=== PATIENT | female | born 1965 | race Caucasian/White ===

== ENCOUNTER 2020-08-15 10:29 | Emergency (ER) | payer BC, SELFPAY ==
--- NOTE | 2020-08-15 11:39 | HMH.EDUTC ---
[facility] [place] Clinical Impression: Exposure to COVID-19 virus Disposition: Home, Self-Care Condition on Discharge: Good Instructions: Preventing the Spread of Coronavirus Discharge Instructions Additional Instructions: Drink plenty of fluids. Take tylenol for pain or fever. Follow up with your regular doctor. GO TO THE ER FOR ANY WORSENING SYMPTOMS Referrals: Damien East APRN [Primary Care Provider] - Time of Disposition: 12:35 Medical Decision Making - Medical Records Medical records reviewed: No: I reviewed the patient's medical records. - Joon Inquiry Pt receiving controlled substance: No Vital Signs: 08/15/20 12:15 08/15/20 12:46 Temperature 97.3 F L 97.3 F L Temperature Source Oral Pulse Rate 57 L Pulse Rate [Right Brachial] 57 L Respiratory Rate 20 20 Blood Pressure 138/89 Blood Pressure [Right Arm] 138/89 Blood Pressure Mean [Right Arm] 105 Blood Pressure Source [Right Arm] Automatic Cuff Blood Pressure Position [Right Arm] Sitting 02 Sat by Pulse Oximetry 97 Oxygen Delivery Method Room Air Orders (Tests/Meds): ORDERS Category Date Time Status Covid-19 Nasal PCR ([facility]) Routine Lab 08/15/20 12:30 Received [facility] [place] HPI - General Stated complaint: covid test Time Seen by Provider: 08/15/20 11:39 - History of Present Illness Provider Complaint: She has been quarentined for the past 2 weeks due to being exposed to covid. She denies any symptoms. She needs a covid test to be allowed to go back to work. - Related Data Allergies Allergy/AdvReac Type Severity Reaction Status Date / Time No Known Allergies Allergy Verified 08/15/20 12:34 [facility] History - Hepatitis A Screen Attestation statement:: This patient has been screened for Hepatitis A risk factors. I have reviewed the patient's past medical history: Yes ROS Obtained: Yes All systems reviewed & no additional complaints - Constitutional Constitutional: Reports system reviewed and no additional complaints, except as docu - Eyes Eyes: Reports system reviewed and no additional complaints, except as docu - ENT Ears, Nose, Mouth, and Throat: Reports system reviewed and no additional complaints, except as docu - Cardiovascular Cardiovascular: Reports system reviewed and no additional complaints, except as docu - Respiratory Respiratory: Yes system reviewed and no additional complaints, except as docu - Gastrointestinal Gastrointestingal: Reports: system reviewed and no additional complaints, except as docu Physical Exam - General General appearance: alert, in no apparent distress - Head Head exam: atraumatic, normocephalic, normal inspection - Eye Eye exam: Present: normal appearance, PERRL, EOMI - ENT ENT exam: Present: normal exam, normal oropharynx, mucous membranes moist, TM's normal bilaterally, normal external ear exam - Neck Neck exam: Present: normal inspection, full ROM, trachea midline. Absent: meningismus, lymphadenopathy - Chest Chest inspection: Present: normal inspection, symmetric chest wall rise. Absent: tenderness - Respiratory Respiratory exam: Present: normal lung sounds bilaterally. Absent: respiratory distress - Cardiovascular Cardiovascular exam: Present: regular rate, normal rhythm. Absent: JVD - Abdominal Exam Abdominal exam: Present: soft, normal bowel sounds. Absent: distention, tenderness, guarding - Extremities Exam Extremities exam: Present: normal inspection, full ROM, normal capillary refill. Absent: calf tenderness - Back Exam Back exam: Present: normal inspection. Absent: tenderness - Neurological Exam Neurological exam: Present: alert, oriented X3 - Psychiatric Psychiatric exam: Present: normal affect, normal mood - Skin Skin exam: Present: warm, dry, intact, normal color - Lymphatic Lymphatic Findings: no adenopathy
[2020-08-15 12:15] VITALS: BP 138/89; PULSE 57; RESP 20; TEMP 36.3; O2SAT 97; BMI 30.5
[2020-08-15 12:46] VITALS: BP 138/89; PULSE 57; RESP 20; TEMP 36.3; O2SAT 97
== END 2020-08-15 12:48 | disposition home or self-care (01) ==
PROVIDERS: Emergency Provider Physician Assistant; PCP Nurse Practitioner Family
DX: Z20.822 Contact with and (suspected) exposure to COVID-19 (principal)
CPT/HCPCS: 99202; G0463; U0003

== ENCOUNTER → 2023-03-15 10:03 | Outpatient (CLI) | payer BC, SELFPAY ==
--- NOTE | 2023-03-15 10:08 | MM_ITS ---
PROCEDURE INFORMATION: Exam: MG Bilateral Screening 3D Mammography Exam date and time: 03/15/2023 10:11 AM Age: 58 years old Clinical indication: Screening examination TECHNIQUE: Imaging protocol: Bilateral Screening tomosynthesis and 2D mammography including computer-aided detection (CAD) when performed. COMPARISON: 1. MG DMDXUAVR DIG MAMM-DX UNI ADD VIEWS-RT 08/23/2013 1:11 PM 2. MG DMSB DIG MAMM-SCREEN DAMIEN 07/26/2013 10:36 AM FINDINGS: MAMMOGRAPHY: Breast composition: There are scattered areas of fibroglandular density. Mass: None. Architectural distortion: None. Calcifications: No suspicious calcifications. Asymmetric density: None. Skin thickening: None. Axillary adenopathy: None. IMPRESSION: No mammographic evidence of malignancy. Annual screening is recommended unless otherwise clinically indicated. ASSESSMENT: BI-RADS Category 1: Negative
== END ==
PROVIDERS: PCP Nurse Practitioner Family; Visit Provider Physician Assistant
DX: Z12.31 Encounter for screening mammogram for malignant neoplasm of breast (principal)
CPT/HCPCS: 77063; 77067

== ENCOUNTER 2025-01-20 13:17 | Outpatient (CLI) | payer BC, SELFPAY ==
--- NOTE | 2025-01-20 13:22 | XR_ITS ---
FINAL REPORT CLINICAL HISTORY: SCREENING COMPARISON: None FINDINGS: Using L1-4, the bone mineral density of the spine is 1.125 g/cm2, corresponding to T-score of 0.7, within normal limits. Using the left hip, the bone mineral density of the femoral neck is 0.784 g/cm2, corresponding to a T-score of -0.6, within normal limits. Using the right hip, the bone mineral density of the femoral neck is 0.707 g/cm2, corresponding to a T-score of -1.3, consistent with osteopenia. FRAX 10 year fracture risk is 0.5% for a hip fracture and 6.9% for a major osteoporotic fracture. NOTE: T-score: Standard deviation compared with peak bone mass of young adult mean. *Following the recommendations of the International Society of Bone densitometry, classification of hip BMD is based on the lower of two T-scores; total hip or femoral neck. IMPRESSION: Diminished bone mineral density consistent with osteopenia. Reviewed, Interpreted and Dictated by Enrique Lopez MD Transcribed by Akosua Richardson Authenticated and [facility]
--- OUTSIDE RECORDS SUMMARY | 2025-01-20 13:43 | XMS_ITS | Data Portability ---
Author Organization [facility] [place] [place] [facility] Address [address] [place] [address] Assessment No assessment recorded. Plan of Treatment Reminders Order Date Submit Date Provider Last Modified By Organization Details Last Modified Time Details Appointments None record ed. Lab None record ed. Referral None record ed. Procedures None record ed. Surgeries None record ed. Imaging None record ed. Medication Orders None record ed. Patient TargetsNo targets recorded. Patient InstructionsNo instructions recorded. Reason for Referral None Reported. Results Created Date Observation Date Name Description Value Unit Range Abnormal Flag Note LastModifiedBy Organization Detail LastModifiedTime 05/03/20 22 05/03/2022 [facility] surgical SEE BELOW Depar tment of Patho logy Surgi krystyna Patho logy Repor t NAME: LUZ ACEVEDO PATH. :ST-2 [id number] Copy to: Diagn osis: A) Sigmo id colon polyp : Hyper plast ic polyp . B) Recta l polyp : Hyper plast ic polyp . SOURC E OF SPECI MEN: COLON POLYP , SIGMO ID RECTA L POLYP CLINI [facility] INFOR MATIO N: Z 12.11 + COLOG UARD Gross Descr iptio n: A) Recei karina in forma moshe label ed with the patie nt's name and desig nated as sigm oid colon polyp is a singl e fragm ent of pale coronel tissu e measu ring 0.5 cm. Entir clyde submi tted in one casse tte. B) Recei karina in forma moshe label ed with the patie nt's name and desig nated as rect al polyp is a singl e fragm ent of pale coronel tissu e measu ring 0.5 cm. Entir clyde submi tted in one casse tte. JAB 05/03 02:35 PM Micro scopi c Descr iptio n: A micro scopi c exami natio n has been perfo rmed and the resul t(s) are as noted above . Bryanna MARTINEZ Out Date: 05/04 11:59 Page 1 of 1 Not Available [facility] [address] [place], [address], 05/04/2022 12:00:47 Result Notes None recorded. Medical Equipment None Reported. Allergies Allergen ID Allergen Name Allergen Category Reaction Reaction Severity Criticality Documentation Date Start Date Code Code System Note Provider Name and Address Organization Details Recorded Time 019518 Product containin g penicilli n (product) medicatio n Not available Not available Not available 07/08/20162013 14243 8001 SNOMED Comme nt: Creat ed By: Aurora haas Date: 014 9:58: 35 AM; Not Available [facility] 6 09:[facility]:21 Medications Name Sig Start Date Stop Date Status Note LastModified by Organization Details LastModified Time ibuprofen 800 mg tablet TAKE ONE TABLET BY MOUTH THREE TIMES DAILY NEEDED --TAKE WITH FOOD-- active Not Available Not Available No t Available valacyclovir 500 mg tablet TAKE 4 TABLETS BY MOUTH EVERY TWELVE HOURS active Not Available Not Available No t Available famotidine 20 mg tablet TAKE ONE TABLET BY MOUTH THREE TIMES DAILY NEEDED take 20 minutes BEFORE ibuprofen active Not Available Not Available No t Available sulindac Two times a day active Durat ion: 30 days; Frequ ency: bid;M edica tion Descr iptio n: sulin dac; Dosag e:1; refil ls:0; Quant ity:3 0 Not Available Not Available Not Available diclofenac 1 % topical gel active Not Available Not Available Not Available Contrave 8 mg-90 mg tablet,exten ded release TAKE TWO TABLETS BY MOUTH TWICE DAILY active Not Available Not Available No t Available Sutab 1.479-0.188- 0.225 gram tablet Take as directedRun following coupon COB with patient insurance for $40 OOP. No PA required if run this way regardless of coverage status. Bin: [id number] PCN: CN Group: [id number] ID: [id number] . GURDEEP 02/25/22 active Not Available Not Available No t Available Vitals None Recorded Social History None recorded. Functional Status None recorded. Mental Status None recorded. Family History Nothing Reported. Medical History No medical history recorded. Gynecological HistoryNo gynecological history recorded. Obstetrics History GPAL:G 0 P 0 0 0 0 Past Encounters Encounter ID Performer Location Encounter Start Date Encounter Closed Date Diagnosis/Indication Diagnosis SNOMED-CT Code Diagnosis ICD10 Code Diagnosis Note [id number] CHERYL MACKENZIE MD SURGERY SCHEDULE [address] [place] [address] 05/03/2022 08:41:29 05/03/2022 08:42:50 Health Concerns Section Related Observation LastModified by Organization Detai ls LastModified Time None Recorded Concern Status LastModified by Organization Details LastModified Time None Recorded Advance Directives Directive None Recorded Payers Insurance Date Sequence Insurance Name Policy Number Policy Tello Covered Member ID Tello Member ID Guarantor Name 04/30/2022 1 [place] [id number] Luz Acevedo [id number] Luz Acevedo OBGyn Episode No OBEpisode recorded.
--- NOTE | 2025-01-20 13:45 | MM_ITS ---
PROCEDURE INFORMATION: Exam: MG Bilateral Screening 3D Mammography Exam date and time: 01/20/2025 2:01 PM Age: 59 years old Clinical indication: Screening examination TECHNIQUE: Imaging protocol: Bilateral Screening tomosynthesis and 2D mammography including computer-aided detection (CAD) when performed. COMPARISON: 1. MG MM DIG SCREENING MAMM BI W/CAD 03/15/2023 10:11 AM 2. MG DMDXUAVR DIG MAMM-DX UNI ADD VIEWS-RT 08/23/2013 1:11 PM FINDINGS: MAMMOGRAPHY: Breast composition: There are scattered areas of fibroglandular density. Mass: None. Architectural distortion: None. Calcifications: No suspicious calcifications. Asymmetric density: None. Skin thickening: None. Axillary adenopathy: None. IMPRESSION: No mammographic evidence of malignancy. Annual screening is recommended unless otherwise clinically indicated. ASSESSMENT: BI-RADS Category 1: Negative.
== END 2025-01-20 23:59 | disposition home or self-care (01) ==
PROVIDERS: PCP Physician Assistant; Visit Provider Physician Assistant
DX: Z12.31 Encounter for screening mammogram for malignant neoplasm of breast (principal); R92.323 Mammographic fibroglandular density, bilateral breasts; M85.80 Other specified disorders of bone density and structure, unspecified site; Z13.820 Encounter for screening for osteoporosis
CPT/HCPCS: 77063; 77067; 77080